=== PATIENT | male | born 1945 | race Caucasian/White ===

== ENCOUNTER 2024-09-22 20:50 | Inpatient (IN) | payer MEDICARE, OTHER ==
[~2024-09-22] VITALS: Ht 175.3 cm; Wt 88.5 kg
[2024-09-22 21:28] LABS: BASOPHILS % (AUTO) 0.8 % (0.0-2.0); EOSINOPHILS # (AUTO) 0.2 K/uL (0.0-0.7); HEMATOCRIT 47 % (39-51); HEMOGLOBIN 15.2 g/dL (13.5-17.5); LYMPHOCYTES # (AUTO) 2.2 K/uL (0.8-4.8); LYMPHOCYTES % (AUTO) 36.8 % (20.0-44.0); MEAN CORPUSCULAR HEMOGLOBIN 28 PG (26.0-33.0); MEAN CORPUSCULAR HGB CONC 32 g/dl (31.0-36.0); MEAN CORPUSCULAR VOLUME 86 fL (80-96); MONOCYTES # (AUTO) 0.6 K/uL (0.1-1.30); MONOCYTES % (AUTO) 10.1 % (2.0-12.0); NEUTROPHILS # (AUTO) 2.9 K/uL (1.8-8.9); NEUTROPHILS % (AUTO) 49.3 % (43.0-81.0); PLATELET COUNT (AUTO) 185 K/uL (150-450); RED BLOOD CELL COUNT(AUTO) 5.46 MIL/uL (4.5-6.0); RED CELL DISTRIBUTION WIDTH 14.6 % (11.5-15.0); WHITE BLOOD COUNT (AUTO) 5.9 K/uL (4.3-11.0)
[2024-09-22 21:38] LABS: ALANINE AMINOTRANSFERASE 15 U/L (12-78); ALBUMIN 3.8 g/dL (3.4-5.0); ALKALINE PHOSPHATASE 78 U/L (46-116); ASPARTATE AMINOTRANSFERASE 14 U/L (15-37); BILIRUBIN,DIRECT 0.1 mg/dL (0.0-0.2); BILIRUBIN,TOTAL 0.4 mg/dL (0.2-1.0); CALCIUM, SERUM 9.1 mg/dL (8.5-10.1); CARBON DIOXIDE 28 mmol/L (21-32); CHLORIDE 105 mmol/L (98-107); CREATININE 1.2 mg/dL (0.6-1.3); GLUCOSE 115 mg/dL (74-106); POTASSIUM 4.4 mmol/L (3.5-5.1); SODIUM SERUM 140 mmol/L (136-145); TOTAL PROTEIN, SERUM 7.2 g/dL (6.4-8.2); UREA NITROGEN, BLOOD 16 mg/dL (7-18)
[2024-09-22 21:43] LABS: ACETAMINOPHEN 0 ug/ml (10-30); ALCOHOL, BLOOD < 3 mg/dL (0-10); SALICYLATE < 0.2 mg/dL (2.8-20.0)
[2024-09-22 23:28] LABS: APPEARANCE,URINE CLEAR (CLEAR); BILIRUBIN,URINE NEGATIVE (NEGATIVE); BLOOD, URINE NEGATIVE Ery/uL (NEGATIVE); COLOR,URINE YELLOW (YELLOW); KETONES,URINE TRACE mg/dL (NEGATIVE); LEUKOCYTE ESTERASE ,URINE NEGATIVE (NEGATIVE); NITRITE, URINE NEGATIVE (NEGATIVE); PROTEIN,URINE NEGATIVE (NEGATIVE); UGLUCOSE NEGATIVE (NEGATIVE); UROBILINOGEN,URINE 0.2 EU/dL (0.2)
[2024-09-22 23:48] LABS: AMPHETAMINE, URINE NEGATIVE (NEGATIVE); BARBITURATE, URINE NEGATIVE (NEGATIVE); BENZODIAZEPINE, URINE NEGATIVE (NEGATIVE); CANNABINOID, URINE NEGATIVE (NEGATIVE); COCCAINE, URINE NEGATIVE (NEGATIVE); OPIATE, URINE NEGATIVE (NEGATIVE); PHENCYCLIDINE SCREEN,URINE NEGATIVE (NEGATIVE)
[2024-09-23 00:39] LABS: ADD URINE CULTURE NO; BACTERIA,URINE Few /HPF (None Seen); MUCUS,URINE Many /LPF (None Seen); RBC,URINE 0-2 /HPF (0-2); SQUAMOUS EPITHELIAL CELL,UR Moderate /HPF (None Seen); WBC,URINE 0-2 /HPF (0-3)
[2024-09-23] MEDS ORDERED: ESCI10TA PO (01:05)
[2024-09-23] MEDS ORDERED: METF-441 PO (01:05)
[2024-09-23] MEDS ORDERED: ERGO500040 PO (01:05)
[2024-09-23] MEDS ORDERED: LOSA100T31 PO (01:05)
[2024-09-23] MEDS ORDERED: QUET25TA PO (01:05)
[2024-09-23 02:25] VITALS: BP 167/78; TEMP 98.3; O2SAT 97
[2024-09-23] MEDS ORDERED: MAG HYDROX/AL HYDROX/SIMETH 30 ML UDC PO PRN (02:30)
[2024-09-23] MEDS ORDERED: TEMAZEPAM 7.5 MG CAPSULE PO PRN ×2 (02:30)
[2024-09-23] MEDS ORDERED: LORAZEPAM 1 MG TABLET PO PRN (02:30)
[2024-09-23] MEDS ORDERED: TEMAZEPAM 15 MG CAPSULE PO PRN (02:30)
[2024-09-23] MEDS ORDERED: MAGNESIUM HYDROXIDE 30 ML UDC PO PRN (02:30)
[2024-09-23] MEDS ORDERED: LORAZEPAM 0.5 MG TABLET PO PRN ×4 (02:30→03:00)
[2024-09-23] MEDS: BLOOD SUGAR DIAGNOSTIC 1 EACH STRIP IN ONE (03:03)
[2024-09-23 06:07] VITALS: BP 135/65; TEMP 97.7; O2SAT 97
[2024-09-23] MEDS ORDERED: LOSA50TA39 PO (07:48)
[2024-09-23 08:00] VITALS: BP 158/94; TEMP 98.1; O2SAT 97
[2024-09-23] MEDS: LORAZEPAM 1 MG TABLET PO PRN (08:04)
[2024-09-23] MEDS: ACETAMINOPHEN 325 MG TABLET PO PRN (14:42)
[2024-09-23 16:00] VITALS: BP 150/82; TEMP 98.7; O2SAT 100
[2024-09-23] MEDS: risperiDONE 1 MG TABLET PO SCH (20:00)
[2024-09-23 21:06] VITALS: BP 186/89; TEMP 98.3; O2SAT 99
[2024-09-23] MEDS: QUETIAPINE FUMARATE 25 MG TABLET PO SCH (21:26)
[2024-09-23 22:05] VITALS: BP 142/77; TEMP 98.2; O2SAT 96
[2024-09-24 07:51] LABS: ALBUMIN 3.5 g/dL (3.4-5.0); BILIRUBIN,TOTAL 0.9 mg/dL (0.2-1.0); CALCIUM, SERUM 9.2 mg/dL (8.5-10.1); CREATININE 1.2 mg/dL (0.6-1.3); POTASSIUM 4.6 mmol/L (3.5-5.1); TOTAL PROTEIN, SERUM 6.8 g/dL (6.4-8.2)
[2024-09-24 08:00] VITALS: BP 150/72; TEMP 98.6; O2SAT 96
[2024-09-24 08:27] LABS: CHOLESTEROL 193 mg/dL (<200); HDL CHOLESTEROL 60 mg/dL (40-60); LDL 128 mg/dL (0-99); TRIGLYCERIDES 52 mg/dL (30-150)
[2024-09-24] MEDS: ESCITALOPRAM OXALATE (10 MG) 10 MG TABLET PO SCH (08:37)
[2024-09-24 16:00] VITALS: BP 126/66; TEMP 97.8; O2SAT 98
[2024-09-24 20:14] VITALS: BP 138/73; TEMP 97.7; O2SAT 97
[2024-09-25 08:00] VITALS: BP 122/81; TEMP 97.4; O2SAT 98
[2024-09-25 16:00] VITALS: BP 137/76; TEMP 97.5; O2SAT 99
[2024-09-25 20:00] VITALS: BP 134/70; TEMP 98; O2SAT 97
[2024-09-26 08:00] VITALS: BP 130/82; TEMP 97.9; O2SAT 100
[2024-09-26 16:00] VITALS: BP 129/86; TEMP 97.5; O2SAT 100
[2024-09-26 20:18] VITALS: BP 160/78; TEMP 97.9; O2SAT 98
[2024-09-27 08:00] VITALS: BP 147/85; TEMP 97.7; O2SAT 99
[2024-09-27 16:00] VITALS: BP 145/63; TEMP 98.6; O2SAT 98
[2024-09-27 20:44] VITALS: BP_SYST 120; BP_SYST 132; BP_DIAS 52; BP_DIAS 75; TEMP 98.4; O2SAT 97
[2024-09-28 08:00] VITALS: BP 141/55; TEMP 97.9; O2SAT 99
[2024-09-28 15:41] VITALS: BP 143/75; TEMP 98; O2SAT 100
[2024-09-28 20:49] VITALS: BP 160/78; TEMP 98; O2SAT 98
[2024-09-29 08:00] VITALS: BP 162/82; TEMP 97.7; O2SAT 98
[2024-09-29] MEDS: LOSARTAN POTASSIUM 50 MG TABLET PO SCH (12:03)
[2024-09-29 15:46] VITALS: BP 160/74; TEMP 97.7; O2SAT 97
[2024-09-29] MEDS: METFORMIN 850 MG TABLET PO SCH (16:41)
[2024-09-29 19:46] VITALS: BP 152/63; TEMP 98.2; O2SAT 99
[2024-09-30 08:00] VITALS: BP 125/78; TEMP 98.6; O2SAT 98
[2024-09-30 16:00] VITALS: BP 137/69; TEMP 97.8; O2SAT 96
[2024-09-30 20:41] VITALS: BP 138/70; TEMP 97.8; O2SAT 96
[2024-10-01 08:00] VITALS: BP 135/72; TEMP 98.1; O2SAT 97
[2024-10-01 16:00] VITALS: BP 152/68; TEMP 98.7; O2SAT 98
[2024-10-01 20:00] VITALS: BP 145/75; TEMP 98.2; O2SAT 96
[2024-10-01] MEDS: QUETIAPINE FUMARATE 25 MG TABLET PO SCH (21:12)
[2024-10-02 08:00] VITALS: BP 127/70; TEMP 98.7; O2SAT 96
[2024-10-02 16:00] VITALS: BP 132/76; TEMP 98.9; O2SAT 97
[2024-10-02 20:00] VITALS: BP 126/65; TEMP 98.2; O2SAT 98
[2024-10-03 08:00] VITALS: BP 153/82; TEMP 97.8; O2SAT 96
[2024-10-03 16:00] VITALS: BP 152/75; TEMP 98; O2SAT 94
[2024-10-03 20:06] VITALS: BP 150/75; TEMP 98.1; O2SAT 99
[2024-10-04 08:00] VITALS: BP 148/67; TEMP 97.7; O2SAT 99
[2024-10-04 16:00] VITALS: BP 128/58; TEMP 98.4; O2SAT 97
[2024-10-04 20:00] VITALS: BP 120/57; TEMP 98.4; O2SAT 97
[2024-10-05 08:00] VITALS: BP 161/75; TEMP 97.9; O2SAT 99
[2024-10-05] MEDS: ERGOCALCIFEROL (VITAMIN D 2) 50,000 UNIT CAPSULE PO SCH (08:26)
[2024-10-05 16:00] VITALS: BP 114/53; TEMP 97.8; O2SAT 98
[2024-10-05 20:54] VITALS: BP 116/54; TEMP 97.8; O2SAT 98
[2024-10-06 08:00] VITALS: BP 120/62; TEMP 98.6; O2SAT 97
[2024-10-06 16:00] VITALS: BP 131/64; TEMP 98.4; O2SAT 96
[2024-10-06 20:02] VITALS: BP 132/69; TEMP 98.5; O2SAT 95
[2024-10-07 08:00] VITALS: BP 151/91; TEMP 97.8; O2SAT 96
[2024-10-07 08:05] VITALS: BP 151/91
[2024-10-07] MEDS ORDERED: QUETIAPINE FUMARATE 25 MG TABLET PO SCH (22:00)
== END 2024-10-07 11:55 | DRG 885 ==
LOC: ER 20:57 → GPS 23:23
PROVIDERS: ADMIT Psychiatry & Neurology Psychiatry; ATTEND Nurse Practitioner Family
DX: F20.0 Paranoid schizophrenia (principal); F03.93 Unspecified dementia, unspecified severity, with mood disturbance; F03.94 Unspecified dementia, unspecified severity, with anxiety; D68.59 Other primary thrombophilia; F29 Unspecified psychosis not due to a substance or known physiological condition; E11.9 Type 2 diabetes mellitus without complications; F41.9 Anxiety disorder, unspecified; E66.9 Obesity, unspecified; F32.A Depression, unspecified; I10 Essential (primary) hypertension; Z86.73 Personal history of transient ischemic attack (TIA), and cerebral infarction without residual deficits; F39 Unspecified mood [affective] disorder; Z68.28 Body mass index [BMI] 28.0-28.9, adult; Z79.899 Other long term (current) drug therapy; Z73.6 Limitation of activities due to disability; Z20.822 Contact with and (suspected) exposure to COVID-19
CPT/HCPCS: 36415; 80048-TC; 80053-TC; 80061-TC; 80076-TC; 81001; 82962-TC; 85025-TC; 87081-TC; 97112-TC; 97116-TC; 97530-TC; G0480